=== PATIENT | male | born 1950 | race Caucasian/White ===

== ENCOUNTER 2018-07-26 10:39 | Emergency (ER) | payer OTHER ==
[~2018-07-26] VITALS: Ht 175.3 cm; Wt 88.5 kg
[2018-07-26 10:47] VITALS: BP_SYST 138
[2018-07-26] MEDS ORDERED: KETOROLAC TROMETHAMINE 60 MG/2 ML VIAL IM ONE (11:15)
[2018-07-26] MEDS ORDERED: ONDANSETRON HCL 4 MG/5 ML UDC PO ONE (11:30)
[2018-07-26] MEDS ORDERED: MORPHINE 4 MG/ML INJ. SYRINGE IVP ONE (11:30)
[2018-07-26 12:20] VITALS: BP_SYST 134
== END 2018-07-26 12:20 | disposition home or self-care (01) ==
LOC: SED 10:39
DX: M54.6 Pain in thoracic spine (principal); E78.5 Hyperlipidemia, unspecified; R03.0 Elevated blood-pressure reading, without diagnosis of hypertension; Z90.89 Acquired absence of other organs; Z88.0 Allergy status to penicillin; X50.0XXA Overexertion from strenuous movement or load, initial encounter; Y93.89 Activity, other specified; Y92.89 Other specified places as the place of occurrence of the external cause; Y99.8 Other external cause status
CPT/HCPCS: 96372; 99283; J1885; J2270; Q0162